=== PATIENT | female | born 1985 | race Caucasian/White ===

== ENCOUNTER 2017-06-09 05:57 | Day surgery (SDC) | payer OTHER, SELFPAY ==
[2017-06-09 06:21] VITALS: BP 113/60; PULSE 68; RESP 16; TEMP 35.9; O2SAT 100; BMI 37.8
--- NOTE | 2017-06-09 07:30 | POC_PTH ---
PATIENT: KACEY SPANN [place] [facility] [id number] AGE/SX: 31/F ROOM: RE06/09/[address]: Dr. Inez Hawthorne MD : [id number] BED: DIS: 06/09/2017 SPEC #: [id number] RECD: 06/09/17 12:29 STATUS: OG MAGALIS #: [id number] GIANA: 06/09/17 07:[address]: Inez Howard DEPT: SURGICAL PATHOLOGY RECD BY: Stefano Henderson ENTERED: 06/09/17 12:29 SP TYPE: PROD CONC OTHR DR: Out of [facility] Doctor Tissues: Product of conception, NOS Procedures: Surgery Specimen Level IV HEADER OPERATION: Dilation and curettage, suction PRE-OP DIAGNOSIS: Missed TISSUE SUBMITTED: Products of conception for chromosomal testing MICROSCOPIC DIAGNOSIS Products of conception: Decidua, gestational endometrium and immature chorionic villi (products of conception). See comment. SJ:debra 06/10/17 COMMENT A portion of tissue is submitted for chromosomal studies. Results will be reported later as an addendum. MICROSCOPIC DESCRIPTION Slides are reviewed. GROSS DESCRIPTION Received fresh is one container labeled with the patient's name and designated products of conception for chromosomal testing. The specimen consists of multiple irregular fragments of pink-red soft tissue that in aggregate measure 9 x 9 x 3 cm. tissue is not identified. [employer] tissue is submitted in two cassettes. A portion of the specimen is submitted for chromosomal studies. / ANDRADE:debra 06/09/17 TC:5 CPT: 90693
[2017-06-09 08:29] VITALS: BP 105/73; BP 113/60; PULSE 83; RESP 18; TEMP 36.2; O2SAT 100
[2017-06-09 08:35] VITALS: BP 111/75; BP 113/60; PULSE 73; RESP 18; O2SAT 100
--- NOTE | 2017-06-09 08:39 | DCINST_ITS ---
Discharge Diet: No Restrictions Discharge Activity: Return to Normal Activity, May not drive while taking narcotic pain medications., - - No driving for 24-48 hours May resume sexual activity in: 4 weeks Call your doctor if you observe: Fever of 101 or Higher, Inability to urinate, Inability to have a bowel movement, Using more than one pad per hour, Shortness of breath, Chest pain, Calf discomfort, Uncontrolled pain Instructions: Understanding Miscarriage: Possible Causes, Understanding Miscarriage: Recovery Allergies/Adverse Reactions: Allergies No Known Allergies Allergy (Verified 01/07/17 11:22) Medications to take at Discharge Levothyroxine [Synthroid] 150 mcg PO DAILY 01/07/17 Citalopram Hydrobromide [Celexa] 20 mg PO DAILY 01/08/17 Ibuprofen 800 mg PO TID PRN #30 tab 06/09/17 Oxycodone [Oxyir] 5 mg PO Q4H PRN PRN #5 tablet 06/09/17 The following prescriptions were given: Oxycodone [Oxyir] 5 mg PO Q4H PRN PRN #5 tablet PRN Reason: Severe Pain (6-10/10) Ibuprofen 800 mg PO TID PRN #30 tab PRN Reason: Pain Primary Care Physician: [facility] ,Out of [Primary Care Provider] - Please Follow Up With: Inez Archer MD When: 1-2 weeks
--- NOTE | 2017-06-09 08:39 | PCM.OPRPT ---
Problem List (1) S/P dilation and curettage Status: Acute (2) Missed with demise before 20 completed weeks of gestation Status: Acute Report of Operation Date of Procedure: 06/09/17 Pre-Operative Diagnosis: Recurrent loss, missed Post-Operative Diagnosis: Recurrent loss, missed Surgery/Procedure Performed:: Suction dilation and curettage Type of Anesthesia:: Local MAC Anesthesiologist: Cj Morrow Specimen's removed: Products of conception Estimated Blood Loss (mL): 20 Description of Procedure: Indications: Ms. Burris is a 31-year-old 4 para 2012 diagnosed with missed at 9 weeks and 5 days in the office yesterday. She was counseled regarding management options and opted to proceed with suction dilatation and curettage. Procedure: The patient was taken to the operating room and signed and was performed. She is placed in the dorsal supine position and induced under MAC. She was then placed into dorsal lithotomy. The perineum was prepped and draped in sterile fashion. Straight catheterization of the bladder was performed. The patient was repositioned into high lithotomy. A weighted speculum was placed into the vagina and the cervix visualized and grasped the anterior cervical lip using a single-tooth tenaculum. The cervix was dilated and suction curettage subsequently performed. Sharp curettage was performed and again followed by suction curettage until there is no further tissue retrieval. The uterus was globally gritty. The tenaculum was removed from the cervix and the tenaculum site was hemostatic following compression. The procedure was complete the speculum was removed from the vagina and patient in the dorsal supine position, awakened and transferred to the recovery room without complication. Were correct ?2. Products of conception are also sent for chromosomal analysis with reflex for MicroArray studies. - Admit VTE Documentation VTE Present on Admission: No VTE Mechan Device Prophylaxis: SCD's VTE Pharm Prophylaxis ordered?: No
[2017-06-09 08:40] VITALS: BP 113/60; BP 113/78; PULSE 71; RESP 18; O2SAT 100
[2017-06-09 08:45] VITALS: BP 113/60; BP 113/81; PULSE 71; RESP 18; TEMP 36.3; O2SAT 99
[2017-06-09 09:40] VITALS: BP 113/60
== END 2017-06-09 09:40 | disposition home or self-care (01) ==
LOC: SDC 05:59 → AC 06:00
PROVIDERS: Visit Provider Obstetrics & Gynecology
PROC: (CPT 59820; principal; 2017-06-09 07:15)
DX: O02.1 Missed abortion (principal); E03.9 Hypothyroidism, unspecified; F41.9 Anxiety disorder, unspecified; M06.9 Rheumatoid arthritis, unspecified; Z79.899 Other long term (current) drug therapy
CPT/HCPCS: 59820; 86850; 86900; 88305; J7120